=== PATIENT | female | born 1990 | race Caucasian/White ===

== ENCOUNTER 2025-08-06 08:56 | Emergency (ER) | payer SELFPAY ==
[2025-08-06 09:10] VITALS: BP 138/98; PULSE 120; RESP 16; TEMP 36.4; O2SAT 99
--- NOTE | 2025-08-06 09:40 | PC.NURSE ---
PT NOT FOUND IN ROOM. WENT OUTSIDE TO LOOK FOR HER AND FOUND HER SITTING OUT IN PARKING [place]. SPOKE WITH PT AND SHE DECLINES TO STAY AND BE SEEN. STILL SCORES LOW ON [place]UM[place]IA SCALE. WALKED AWAY FROM THIS RN. KAVITHA [phone] RECALLED AND INFORMED OF PT LEAVING THE ER
== END 2025-08-06 10:05 | disposition left against medical advice (07) ==
DX: R45.83 Excessive crying of child, adolescent or adult (principal)
CPT/HCPCS: 99199